=== PATIENT | female | born 2000 | race Caucasian/White ===

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

== ENCOUNTER 2018-01-18 07:54 | Emergency (ER) | payer OTHER ==
[~2018-01-18] VITALS: Ht 167.6 cm; Wt 93.6 kg
[~2018-01-18 07:54] MED LIST changes: +CIPROFLOXACN500 MG PO; +IBUPROFEN600 MG PO; +PYRIDIUM200 MG PO
[2018-01-18] MEDS ORDERED: DELTASONE20 MG PO (08:23)
[2018-01-18 08:43] VITALS: BP 131/88
== END 2018-01-18 08:50 | disposition home or self-care (01) ==
LOC: ED 07:54
DX: B08.4 Enteroviral vesicular stomatitis with exanthem (principal)

== ENCOUNTER 2018-04-06 20:28 | Emergency (ER) | payer OTHER ==
[~2018-04-06] VITALS: Ht 167.6 cm; Wt 106.2 kg
[~2018-04-06 20:28] MED LIST changes: +DELTASONE20 MG PO
[2018-04-06 21:44] LABS: URINE BILIRUBIN - DIPSTICK NEGATIVE (NEGATIVE); URINE BLOOD DIPSTICK LARGE (NEGATIVE); URINE GLUCOSE - DIPSTICK NEGATIVE (NEGATIVE); URINE KETONE NEGATIVE (NEGATIVE); URINE LEUK ESTERASE TRACE (NEGATIVE); URINE NITRITE - DIPSTICK NEGATIVE (Negative); URINE PH 5.5 (4.5-8.0); URINE PROTEIN - DIPSTICK >=300 mg/dL (NEG-TRACE); URINE SPECIFIC GRAVITY >=1.030; URINE UROBILINOGEN - DIPSTICK 0.2 E.U./dL (0.2)
[2018-04-06 21:48] LABS: URINE CLARITY CLOUDY; URINE COLOR RED; URINE EPITHELIAL CELLS FEW EPI/hpf (0-FEW); URINE RBC TNTC RBC/hpf (0-5)
[2018-04-06] MEDS ORDERED: BACTRIM DS1 TAB PO (22:05)
[2018-04-06 22:20] VITALS: BP 118/78
== END 2018-04-06 22:21 | disposition home or self-care (01) ==
LOC: ED 20:28
PROVIDERS: Family Medicine
DX: N30.00 Acute cystitis without hematuria (principal)

== ENCOUNTER 2018-07-29 11:49 | Emergency (ER) | payer OTHER ==
[~2018-07-29] VITALS: Ht 167.6 cm; Wt 159.0 kg
[~2018-07-29 11:49] MED LIST changes: +BACTRIM DS1 TAB PO
[2018-07-29 12:41] VITALS: BP 123/77
[2018-07-29] MEDS ORDERED: PRENATAL1 TA1 PO (12:42)
== END 2018-07-29 12:49 | disposition home or self-care (01) ==
LOC: ED 11:49
DX: O99.340 Other mental disorders complicating pregnancy, unspecified trimester (principal); F41.9 Anxiety disorder, unspecified; Z3A.00 Weeks of gestation of pregnancy not specified

== ENCOUNTER 2018-09-11 11:05 | Emergency (ER) | payer OTHER ==
[~2018-09-11] VITALS: Ht 167.6 cm; Wt 114.0 kg
[~2018-09-11 11:05] MED LIST changes: +PRENATAL1 TA1 PO
[2018-09-11 11:34] LABS: URINE BILIRUBIN - DIPSTICK NEGATIVE (NEGATIVE); URINE BLOOD DIPSTICK NEGATIVE (NEGATIVE); URINE COLOR YELLOW; URINE GLUCOSE - DIPSTICK NEGATIVE (NEGATIVE); URINE KETONE NEGATIVE (NEGATIVE); URINE LEUK ESTERASE SMALL (NEGATIVE); URINE NITRITE - DIPSTICK NEGATIVE (Negative); URINE PH 6.5 (4.5-8.0); URINE PROTEIN - DIPSTICK TRACE mg/dL (NEG-TRACE); URINE SPECIFIC GRAVITY 1.025
[2018-09-11 11:46] LABS: URINE SQUAMOUS EPITHELIAL CELL FEW EPI/hpf (0-FEW)
[2018-09-11] MEDS ORDERED: AMOXICILLIN875 MG PO (11:51)
[2018-09-11 12:00] VITALS: BP 152/77
== END 2018-09-11 12:00 | disposition home or self-care (01) ==
LOC: ED 11:05
PROVIDERS: Emergency Medicine
DX: N39.0 Urinary tract infection, site not specified (principal); R30.0 Dysuria

== ENCOUNTER 2020-07-27 22:48 | Emergency (ER) | payer OTHER ==
[~2020-07-27] VITALS: Ht 167.6 cm; Wt 113.6 kg
[~2020-07-27 22:48] MED LIST changes: +AMOXICILLIN875 MG PO; +LOTRISONE CREAM15 G1 EX
[2020-07-27 23:26] VITALS: BP 128/58
[2020-07-27 23:27] LABS: URINE BILIRUBIN - DIPSTICK NEGATIVE (NEGATIVE); URINE BLOOD DIPSTICK NEGATIVE (NEGATIVE); URINE COLOR YELLOW; URINE GLUCOSE - DIPSTICK NEGATIVE (NEGATIVE); URINE KETONE NEGATIVE (NEGATIVE); URINE LEUK ESTERASE NEGATIVE (NEGATIVE); URINE NITRITE - DIPSTICK NEGATIVE (Negative); URINE PH 6.5 (4.5-8.0); URINE PROTEIN - DIPSTICK NEGATIVE (NEG-TRACE); URINE SPECIFIC GRAVITY 1.025; URINE UROBILINOGEN - DIPSTICK 0.2 E.U./dL (0.2)
== END 2020-07-28 00:11 | disposition home or self-care (01) ==
LOC: ED 22:48
PROVIDERS: Family Medicine
DX: N76.2 Acute vulvitis (principal); N39.3 Stress incontinence (female) (male); F32.9 Major depressive disorder, single episode, unspecified; Z87.440 Personal history of urinary (tract) infections

== ENCOUNTER 2020-12-11 19:48 | Emergency (ER) | payer OTHER ==
[~2020-12-11] VITALS: Ht 167.6 cm; Wt 113.6 kg
[2020-12-11 19:50] VITALS: BP 138/79
[2020-12-11 20:17] LABS: URINE BILIRUBIN - DIPSTICK NEGATIVE (NEGATIVE); URINE BLOOD DIPSTICK SMALL (NEGATIVE); URINE COLOR YELLOW; URINE GLUCOSE - DIPSTICK NEGATIVE (NEGATIVE); URINE KETONE TRACE mg/dL (NEGATIVE); URINE PH 5.5 (4.5-8.0); URINE PROTEIN - DIPSTICK NEGATIVE (NEG-TRACE); URINE SPECIFIC GRAVITY >=1.030; URINE UROBILINOGEN - DIPSTICK 0.2 E.U./dL (0.2)
[2020-12-11 20:19] LABS: URINE LEUK ESTERASE MODERATE (NEGATIVE); URINE NITRITE - DIPSTICK NEGATIVE (Negative)
[2020-12-11 20:23] LABS: URINE SQUAMOUS EPITHELIAL CELL MANY EPI/hpf (0-FEW)
[2020-12-11] MEDS ORDERED: BACTRIM DS1 TAB PO (20:50)
== END 2020-12-11 21:19 | disposition home or self-care (01) ==
LOC: ED 19:48
PROVIDERS: Family Medicine
DX: N39.0 Urinary tract infection, site not specified (principal); F32.9 Major depressive disorder, single episode, unspecified; Z87.440 Personal history of urinary (tract) infections

== ENCOUNTER 2021-10-05 20:14 | Emergency (ER) | payer OTHER ==
[~2021-10-05] VITALS: Ht 167.6 cm; Wt 110.0 kg
[2021-10-05 20:23] VITALS: BP 144/101
[2021-10-05 20:30] VITALS: BP 146/96
[2021-10-05 20:39] LABS: URINE BILIRUBIN - DIPSTICK NEGATIVE (NEGATIVE); URINE BLOOD DIPSTICK TRACE-INTACT (NEGATIVE); URINE COLOR YELLOW; URINE GLUCOSE - DIPSTICK NEGATIVE (NEGATIVE); URINE KETONE NEGATIVE (NEGATIVE); URINE PROTEIN - DIPSTICK TRACE mg/dL (NEG-TRACE); URINE SPECIFIC GRAVITY 1.025
[2021-10-05 20:41] LABS: URINE LEUK ESTERASE MODERATE (NEGATIVE); URINE NITRITE - DIPSTICK POSITIVE (Negative)
[2021-10-05 20:50] LABS: URINE BACTERIA MANY hpf; URINE SQUAMOUS EPITHELIAL CELL FEW EPI/hpf (0-FEW)
[2021-10-05] MEDS ORDERED: BACTRIM DS1 TAB PO (21:29)
[2021-10-05 21:31] VITALS: BP 128/78
== END 2021-10-05 21:40 | disposition home or self-care (01) ==
LOC: ED 20:14
PROVIDERS: Family Medicine
DX: N39.0 Urinary tract infection, site not specified (principal); Z87.440 Personal history of urinary (tract) infections

== ENCOUNTER 2022-07-10 21:48 | Emergency (ER) | payer OTHER ==
[~2022-07-10] VITALS: Ht 167.6 cm; Wt 104.0 kg
[2022-07-10] MEDS ORDERED: VOLTAREN75 MG PO (22:06)
[2022-07-10] MEDS ORDERED: TRAMADOL HCL50 MG PO (22:06)
[2022-07-10] MEDS ORDERED: AMOXICILLIN500 MG PO (22:06)
[2022-07-10 22:17] VITALS: BP 170/105
== END 2022-07-10 22:18 | disposition home or self-care (01) ==
LOC: ED 21:48
DX: K02.9 Dental caries, unspecified (principal); K04.7 Periapical abscess without sinus; F32.A Depression, unspecified

== ENCOUNTER 2022-10-02 14:22 | Emergency (ER) | payer OTHER ==
[~2022-10-02] VITALS: Ht 167.6 cm; Wt 131.0 kg
[~2022-10-02 14:22] MED LIST changes: +AMOXICILLIN500 MG PO; +TRAMADOL HCL50 MG PO; +VOLTAREN75 MG PO
[2022-10-02 14:30] VITALS: BP 130/94
[2022-10-02 14:47] VITALS: BP 146/83
[2022-10-02 15:01] VITALS: BP 132/114
[2022-10-02 15:16] VITALS: BP 154/127
[2022-10-02 15:31] VITALS: BP 133/74
[2022-10-02 15:57] VITALS: BP 133/74
== END 2022-10-02 16:00 | disposition home or self-care (01) ==
LOC: ED 14:22
DX: T76.21XA Adult sexual abuse, suspected, initial encounter (principal); F17.200 Nicotine dependence, unspecified, uncomplicated